=== PATIENT | male | born 1975 | race African-American/Black ===

== ENCOUNTER 2017-01-07 18:33 | Emergency (ER) | payer OTHER ==
[~2017-01-07] VITALS: Ht 165.1 cm; Wt 105.3 kg
[2017-01-07] MEDS ORDERED: SODIUM CHLORIDE 0.9% 1,000ML IVBOLUS ONE (19:00)
[2017-01-07] MEDS ORDERED: ACETAMINOPHEN 325 MG TABLET ONE (19:42)
[2017-01-07 19:47] LABS: ASPARTATE AMINO TRANSFERASE 113 U/L (15-37); BLOOD UREA NITROGEN 9 mg/dL (7-18)
[2017-01-07] MEDS ORDERED: ACETAMINOPHEN 325 MG TABLET PO ONE (20:00)
[2017-01-07] MEDS ORDERED: ALBUTEROL/IPRATROPIUM 2.5MG/0.5MG, 3 ML NPPB ONE ×2 (20:30→23:30)
[2017-01-07] MEDS ORDERED: ALBUTEROL/IPRATROPIUM 2.5MG/0.5MG, 3 ML ONE (20:36)
[2017-01-07] MEDS ORDERED: OMNIPAQUE 350 MG/ML, 100ML BOTTLE ONE (22:32)
[2017-01-07] MEDS ORDERED: AZITHROMYCIN 500 MG TABLET ONE (23:25)
[2017-01-07] MEDS ORDERED: CEFTRIAXONE PMX 1GM/50ML 50 ML ONE (23:25)
[2017-01-07] MEDS ORDERED: CEFTRIAXONE PMX 1GM/50ML 50 ML IVPB ONE (23:30)
[2017-01-07] MEDS ORDERED: AZITHROMYCIN 500 MG TABLET PO ONE (23:30)
[2017-01-08 00:52] VITALS: BP 119/74
== END 2017-01-08 00:54 | disposition home or self-care (01) ==
LOC: ED 21:27
DX: J18.0 Bronchopneumonia, unspecified organism (principal); R50.9 Fever, unspecified; R06.00 Dyspnea, unspecified
CPT/HCPCS: 36415; 71020; 71275; 80053; 85025; 93005; 94640; 96361; 96365; 99285; J0696; J7030; Q9967; J7620